=== PATIENT | male | born 2000 | race Caucasian/White ===

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

== ENCOUNTER 2020-04-17 13:51 | Emergency (ER) | payer OTHER, MEDICAID ==
[~2020-04-17] VITALS: Ht 172.7 cm; Wt 86.2 kg
[~2020-04-17 13:51] MED LIST changes: +ACETAMINOP-CODEI5 ML PO
[2020-04-17 15:35] VITALS: BP 109/49
[2020-04-17] MEDS ORDERED: MEDROLDOSEPACK PO (15:35)
[2020-04-17] MEDS ORDERED: VISTARIL 25 MG25 M1 PO (15:35)
[2020-04-17] MEDS ORDERED: NAPROSYN500 MG PO (15:35)
== END 2020-04-17 15:35 | disposition home or self-care (01) ==
LOC: M.ERS 13:51
DX: M54.5 Low back pain (principal); F41.9 Anxiety disorder, unspecified

== ENCOUNTER 2020-04-18 15:58 | Emergency (ER) | payer OTHER, MEDICAID ==
[~2020-04-18] VITALS: Ht 172.7 cm; Wt 77.1 kg
[~2020-04-18 15:58] MED LIST changes: +MEDROLDOSEPACK PO; +NAPROSYN500 MG PO; +VISTARIL 25 MG25 M1 PO
[2020-04-18 16:20] VITALS: BP 118/82
== END 2020-04-18 16:21 | disposition home or self-care (01) ==
LOC: M.ERS 15:58
DX: M54.5 Low back pain (principal)